=== PATIENT | male | born 1955 ===

== ENCOUNTER 2020-08-05 13:00 | Emergency (ER) | payer BC, SELFPAY ==
[2020-08-05 13:10] VITALS: BP 139/82; PULSE 55; BMI 28.7
== END 2020-08-05 15:21 | disposition home or self-care (01) ==
LOC: JERFT 13:00
DX: I80.3 Phlebitis and thrombophlebitis of lower extremities, unspecified (principal)
CPT/HCPCS: 93970-TC; 99284-25